=== PATIENT | female | born 1935 | race Caucasian/White ===

== ENCOUNTER 2024-08-28 00:18 | Emergency (ER) | payer MEDICARE, OTHER ==
[2024-08-28 00:27] VITALS: TEMP 97.4
--- NOTE | 2024-08-28 00:34 | ED ---
Chest Pain HPI - General Chief Complaint: Back Pain/Injury Stated Complaint: Neck Pain Time Seen by Provider: 08/28/24 00:18 Source: EMS, RN notes reviewed, old records reviewed Mode of arrival: EMS Limitations: no limitations - History of Present Illness Initial Comments: This is an 89 female to the ER for evaluation. Patient has multiple complaints neck pain back pain chest pain nausea vomiting. Patient is screaming hysterical but able to get across history, symptoms started just prior to arrival she called EMS and is brought to the ER. Patient is able to focus but is very anxious MD Complaint: chest pain, other (Pain neck pain) Onset: during rest Pain Location: substernal, left chest, right chest Pain Radiation: RUE, LUE, back Severity: severe Severity scale (1-10): 10 Quality: aching, sharp Consistency: constant Improves With: nothing Worsens With: nothing Anginal Symptoms: sense of impending doom Other Symptoms: palpitations Treatments Prior to Arrival: none - Related Data Allergies Allergy/AdvReac Type Severity Reaction Status Date / Time No Known Allergies Allergy Verified 08/28/24 00:42 Review of Systems ROS Statement: Those systems with pertinent positive or pertinent negative responses have been documented in the HPI. ROS Other: All systems not noted in ROS Statement are negative. EKG Findings - EKG Comments: EKG Findings:: EKG sinus 93 CO 178 QRS 75 QTc 390 - EKG Results: EKG: interpreted by ERMD General Exam General appearance: alert, in no apparent distress, anxious Head exam: Present: atraumatic, normocephalic, normal inspection Eye exam: Present: normal appearance, PERRL, EOMI. Absent: scleral icterus, conjunctival injection, periorbital swelling ENT exam: Present: normal exam, mucous membranes moist Neck exam: Present: normal inspection. Absent: tenderness, meningismus, lymphadenopathy Respiratory exam: Present: normal lung sounds bilaterally. Absent: respiratory distress, wheezes, rales, rhonchi, stridor Cardiovascular Exam: Present: regular rate, normal rhythm, normal heart sounds. Absent: systolic murmur, diastolic murmur, rubs, gallop, clicks GI/Abdominal exam: Present: soft, normal bowel sounds. Absent: distended, tenderness, guarding, rebound, rigid Extremities exam: Present: normal inspection, full ROM, normal capillary refill. Absent: tenderness, pedal edema, joint swelling, calf tenderness Back exam: Present: normal inspection Neurological exam: Present: alert, oriented X3, CN II-XII intact Psychiatric exam: Present: normal affect, normal mood Skin exam: Present: warm, dry, intact, normal color. Absent: rash Course Vital Signs 08/28/24 00:20 Temperature 97.4 F L Pulse Rate 94 Respiratory 20 Rate Blood Pressure 174/82 O2 Sat by Pulse 100 Oximetry - Reevaluation(s) Reevaluation #1: 08/28/24 01:16 Medical records reviewed Reevaluation #4: Was pt. sent in by a medical professional or institution (, [facility], [employer], urgent care, hospital, or intermediate...) When possible be specific @ -no Did you speak to anyone other than the patient for history (EMS, parent, family, police, friend...)? What history was obtained from this source @ -no Did you review nursing and triage notes (agree or disagree)? Why? @ -agree Are old charts reviewed (outside hosp., previous admission, EMS record, old EKG, old radiological studies, urgent care reports/EKG's, intermediate records)? Report findings @ -yes Differential Diagnosis (chest pain, altered mental status, abdominal pain women, abdominal pain men, vaginal bleeding, weakness, fever, dyspnea, syncope, headache, dizziness, GI bleed, back pain, seizure, CVA, palpatations, mental health, musculoskeletal)? @ -prior EKG interpreted by me (3pts min.). @ -yes X-rays interpreted by me (1pt min.). @ -yes negative for acute disease CT interpreted by me (1pt min.). @ -no U/S interpreted by me (1pt. min.). @ -no What testing was considered but not performed or refused? (CT, X-rays, U/S, labs)? Why? @ -none What meds were considered but not given or refused? Why? @ -none Did you discuss the management of the patient with other professionals (professionals i.e. [facility] Pickering, [employer], lab, RT, psych nurse, social media director, buildings and grounds superintendent, teacher, activities officer, manager rn case)? Give summary @ -no Was smoking cessation discussed for >3mins.? @ -no Was critical care preformed (if so, how long)? @ -no Were there social determinants of health that impacted care today? How? (Homelessness, low income, unemployed, alcoholism, drug addiction, transportation, low edu. Level, literacy, decrease access to med. care, senior care, rehab)? @ -none Was there de-escalation of care discussed even if they declined (Discuss DNR or withdrawal of care, Hospice)? DNR status @ -no What co-morbidities impacted this encounter? (DM, HTN, Smoking, COPD, CAD, Cancer, CVA, ARF, Chemo, Hep., AIDS, mental health diagnosis, sleep apnea, morbid obesity)? @ -none Was patient admitted / discharged? Hospital course, mention meds given and route, prescriptions, significant lab abnormalities, going to OR and other pertinent info. @ - Undiagnosed new problem with uncertain prognosis? @ -no Drug Therapy requiring intensive monitoring for toxicity (Heparin, Nitro, Insulin, Cardizem)? @ -no Were any procedures done? @ -no Diagnosis/symptom? @ - Acute, or Chronic, or Acute on Chronic? @ -Acute Uncomplicated (without systemic symptoms) or Complicated (systemic symptoms)? @ -Complicated Side effects of treatment? @ -no Exacerbation, Progression, or Severe Exacerbation? @ -exacerbation Poses a threat to life or bodily function? How? (Chest pain, USA, SD, pneumonia, PE, COPD, DKA, ARF, appy, cholecystitis, CVA, Diverticulitis, Homicidal, Suicidal, threat to staff... and all critical care pts) @ -yes Reevaluation #5: Differential Chest Pain: Stable Angina, Unstable Angina, STEMI, NSTEMI Aortic Dissection, Pneumothorax, Musculoskeletal, Esophageal Spasm GERD, Cholecystitis, Pancreatitis, Zoster, this is not meant to be an all-inclusive list. Differential Back Pain: Strain, zoster, cauda equina syndrome, epidural abscess, vertebral osteomyelitis, discitis, fracture, subluxation, disc herniation, DJD, spinal stenosis, dissection, AAA, pancreatitis, peptic ulcer disease, pyelonephritis, kidney stone, this is not meant to be an all-inclusive list. Disposition Clinical Impression: Back pain, Thoracic back pain, Neck pain, Chest pain Disposition: HOME SELF-CARE Condition: Fair Instructions (If sedation given, give patient instructions): Back Pain (ED) Is patient prescribed a controlled substance at d/c from ED?: No Referrals: None,Stated [REFERRING] - 1-2 days Time of Disposition: 04:30
[2024-08-28 00:40] LABS: Basophils % (A) 0 %; Eosinophils # (A) 0.3 k/uL (0-0.7); Eosinophils % (A) 4 %; HCT 45.3 % (34.0-46.0); HGB 15.3 gm/dL (11.4-16.0); Lymphocytes # (A) 2.6 k/uL (1.0-4.8); Lymphocytes % (A) 37 %; MCH 31.2 pg (25.0-35.0); MCHC 33.8 g/dL (31.0-37.0); MCV 92.3 fL (80.0-100.0); Mean Platelet Volume 7.8; Monocytes # (A) 0.5 k/uL (0-1.0); Monocytes % (A) 8 %; Neutrophils # (A) 3.5 k/uL (1.3-7.7); Neutrophils % (A) 49 %; Platelet Count 196 k/uL (150-450); RBC 4.91 m/uL (3.80-5.40); RDW 13.2 % (11.5-15.5); WBC 7.1 k/uL (3.8-10.6)
[2024-08-28 00:52] LABS: ALT 17 U/L (4-34); AST 21 U/L (14-36); African American GFR (CKD) 89 (>60 ml/min/1.73 sqM); Albumin 4.3 g/dL (3.5-5.0); Alkaline Phosphatase 141 U/L (38-126); Anion Gap 15 mmol/L; Blood Urea Nitrogen 15 mg/dL (7-17); Calcium 9.7 mg/dL (8.4-10.2); Carbon Dioxide 19 mmol/L (22-30); Chloride 99 mmol/L (98-107); Glucose 136 mg/dL (74-99); Non-African American GFR(CKD) 78 (>60 ml/min/1.73 sqM); Phosphorus 2.7 mg/dL (2.5-4.5); Sodium 133 mmol/L (137-145); Total Protein 6.7 g/dL (6.3-8.2)
[2024-08-28] MEDS: SODIUM CHLORIDE 0.9% 1,000 ML IV STA (00:53)
[2024-08-28 00:56] LABS: INR 0.9 (<1.2); Prothrombin Time 10.5 sec (10.0-12.5)
[2024-08-28] MEDS: ONDANSETRON 4 MG/2 ML VIAL IVP STA (00:58)
[2024-08-28 00:59] LABS: NT-Pro-B-Type Natriuretic Pept 361 pg/mL
[2024-08-28] MEDS: MORPHINE SULFATE 4 MG/ML SYRINGE IV STA (01:02)
[2024-08-28 01:04] LABS: Partial Thromboplastin Time 20.7 sec (22.0-30.0)
--- NOTE | 2024-08-28 03:47 | CT ---
EXAM: CT Angiography Chest Without and With Intravenous Contrast CLINICAL HISTORY: Dissection TECHNIQUE: Axial computed tomographic angiography images of the chest without and with intravenous contrast using aortic dissection protocol. CTDI is 35 mGy and DLP is 1959.4 mGy-cm. This CT exam was performed using one or more of the following dose reduction techniques: automated exposure control, adjustment of the mA and/or kV according to patient size, and/or use of iterative reconstruction technique. MIP reconstructed images were created and reviewed. COMPARISON: No relevant prior studies available. FINDINGS: Aorta: No acute findings. No thoracic aortic aneurysm or dissection. Pulmonary arteries: No large/central pulmonary embolism. Great vessels of aortic arch: No acute findings. No dissection. No arterial occlusion or significant stenosis. Lungs: Accounting for limitations with respiratory artifact, there is no definite focal airspace consolidation. Bronchiectasis noted involving the lower lobes with minimal subsegmental atelectatic changes. No mass. Pleural space: Unremarkable. No significant effusion. No pneumothorax. Heart: The cardiac chambers are normal in size with left ventricular hypertrophy. At least moderate coronary artery calcification in the LAD distribution. No pericardial effusion. Calcification of the aortic valve. Bones/joints: Multilevel degenerative changes throughout the thoracic spine with anterior hypertrophic osteophytes. No acute osseous abnormality. No dislocation. Soft tissues: Unremarkable. Lymph nodes: Unremarkable. No enlarged lymph nodes. Other findings: No intimal wall abnormality noted on precontrast imaging. IMPRESSION: 1. No thoracic aortic aneurysm or dissection. 2. Accounting for limitations with respiratory artifact, there is no definite focal airspace consolidation. Bronchiectasis noted involving the lower lobes with minimal subsegmental atelectatic changes. No pleural effusion or pneumothorax. EXAM: CT Angiography Abdomen and Pelvis Without and With Intravenous Contrast CLINICAL HISTORY: Dissection TECHNIQUE: Axial computed tomographic angiography images of the abdomen and pelvis without and with intravenous contrast. CTDI is 31 mGy and DLP is 1959.4 mGy-cm. This CT exam was performed using one or more of the following dose reduction techniques: automated exposure control, adjustment of the mA and/or kV according to patient size, and/or use of iterative reconstruction technique. MIP reconstructed images were created and reviewed. COMPARISON: No relevant prior studies available. FINDINGS: VASCULATURE: Aorta: The abdominal aorta is normal in caliber without dissection or aneurysm. The aorta is tortuous with atherosclerotic calcification. No intimal wall abnormality or acute periaortic abnormality identified. Celiac trunk and mesenteric arteries: No acute findings. No occlusion or significant stenosis. Renal arteries: No acute findings. No occlusion or significant stenosis. Iliac arteries: No acute findings. No occlusion or significant stenosis. Lung bases: For findings regarding the lung bases, please see the CT report of the chest performed concurrently. ABDOMEN: Liver: Unremarkable. No mass. Gallbladder and bile ducts: Pneumobilia. No biliary dilatation. Cholecystectomy. Pancreas: Unremarkable. No ductal dilation. No mass. Spleen: Unremarkable. No splenomegaly. Adrenals: Unremarkable. No mass. Kidneys and ureters: Unremarkable. No obstructing stones. No hydronephrosis. No solid mass. Stomach and bowel: Nonspecific fluid and gas distended small bowel loops throughout the anterior abdomen and pelvis with fecal material and a few distended, but nondilated small bowel loops. Mild to moderate stool burden. Scattered diverticulosis without diverticulitis. PELVIS: Appendix: A normal caliber appendix is noted medial the cecum in the right antral pelvis. Bladder: Unremarkable. No stones. No mass. Reproductive: Unremarkable as visualized. ABDOMEN and PELVIS: Intraperitoneal space: Unremarkable. No significant fluid collection. No free air. Bones/joints: No acute fracture. No dislocation. Soft tissues: Laxity of the anterior abdominal wall with atrophy of the musculature. There is a small periumbilical hernia containing bowel loops without evidence for obstruction or inflammation. Lymph nodes: Unremarkable. No enlarged lymph nodes. IMPRESSION: 1. The abdominal aorta is normal in caliber without dissection or aneurysm. The aorta is tortuous with atherosclerotic calcification. No intimal wall abnormality or acute periaortic abnormality identified. 2. Nonspecific fluid and gas distended small bowel loops throughout the anterior abdomen and pelvis with fecal material and a few distended, but nondilated small bowel loops. The appearance suggests enteritis. No pneumatosis or pneumoperitoneum. 3. Laxity of the anterior abdominal wall with atrophy of the musculature. There is a small periumbilical hernia containing bowel loops without evidence for obstruction or inflammation. The clinical segments of this finding is indeterminate as may be incidental.
[2024-08-28 04:55] VITALS: RESP 18
[2024-08-28] MEDS: KETOROLAC 15 MG/ML 1 ML VIAL IVP STA (05:02)
[2024-08-28] MEDS: MORPHINE SULFATE 2 MG/ML SYRINGE IVP STA (05:03)
[2024-08-28] MEDS: ACETAMINOPHEN TAB 500 MG TAB PO STA (05:04)
[2024-08-28] MEDS: IBUPROFEN 600 MG STARTER PACK 4 TAB BTL PO STA (05:04)
[2024-08-28] MEDS: ACET/COD 300 MG/30 MG STARTER PACK 6 TAB BTL PO STA (05:05)
[2024-08-28 05:38] VITALS: BP 155/73; PULSE 92
== END 2024-08-28 05:38 | disposition home or self-care (01) ==
LOC: EC 00:18
DX: M54.6 Pain in thoracic spine (principal); M54.2 Cervicalgia; R07.9 Chest pain, unspecified
CPT/HCPCS: 36415; 93005; 83880; 80053; 83605; 83735; 84100; 84484; 85025; 85610; 85730; 71275; 74174; 99285; 96374; 96375 ×2; 96376; 96361; J2270 ×2; J2405; J1885; Q9967